=== PATIENT | female | born 1935 | race African-American/Black ===

== ENCOUNTER 2018-09-12 17:14 | Emergency (ER) | payer MEDICARE, OTHER ==
[~2018-09-12] VITALS: Ht 157.5 cm; Wt 61.0 kg
[~2018-09-12 17:14] MED LIST: ASPI81TA47; ATOR80TA; BIOTIN; CYAN1TAB43; FURO-151; HYDR-4135; LANTUS; METO100T9; SEE MED SHEET
[2018-09-13] MEDS ORDERED: ACETAMINOPHEN 325MG TABLET PO ONE (00:30)
[2018-09-13] MEDS ORDERED: KETOROLAC 15MG/ML VIAL IM ONE (00:30)
[2018-09-13 02:00] VITALS: BP 105/60
== END 2018-09-13 00:49 | disposition home or self-care (01) ==
LOC: ER 17:14
DX: S16.1XXA Strain of muscle, fascia and tendon at neck level, initial encounter (principal); E11.9 Type 2 diabetes mellitus without complications; E78.00 Pure hypercholesterolemia, unspecified; I10 Essential (primary) hypertension; Z90.710 Acquired absence of both cervix and uterus; Z96.659 Presence of unspecified artificial knee joint; Z88.0 Allergy status to penicillin; Z88.8 Allergy status to other drugs, medicaments and biological substances; Z79.899 Other long term (current) drug therapy; X58.XXXA Exposure to other specified factors, initial encounter; Y93.89 Activity, other specified; Y92.89 Other specified places as the place of occurrence of the external cause; Y99.8 Other external cause status
CPT/HCPCS: 96372; 99283; J1885

== ENCOUNTER 2021-08-01 20:35 | Emergency (ER) | payer OTHER ==
[~2021-08-01] VITALS: Ht 162.6 cm; Wt 62.0 kg
[2021-08-01 22:44] VITALS: BP 189/84
[2021-08-01] MEDS ORDERED: ALPRAZOLAM 0.25 MG TABLET PO ONE (23:15)
== END 2021-08-01 23:46 | disposition home or self-care (01) ==
LOC: ER 20:52
DX: E11.40 Type 2 diabetes mellitus with diabetic neuropathy, unspecified (principal); I10 Essential (primary) hypertension; R45.0 Nervousness; E78.00 Pure hypercholesterolemia, unspecified; Z79.84 Long term (current) use of oral hypoglycemic drugs; Z79.899 Other long term (current) drug therapy; Z88.0 Allergy status to penicillin
CPT/HCPCS: 82962; 93005; 99283